=== PATIENT | male | born 1965 | race Caucasian/White ===

== ENCOUNTER 2016-12-30 18:29 | Inpatient (IN) | payer OTHER ==
[~2016-12-30] VITALS: Ht 162.6 cm; Wt 72.6 kg
[~2016-12-30 18:29] MED LIST: APAP/HYDROCODON1 T13 PO; COL100 PO; DEPAKOTE500 MG PO; FER300 PO; IPRATROPIUM BROM3 M2 HHN; LEVOTHYROXIN0.025 M2 PO; LORAZEPAM0.5 MG PO; MAGL PO; MELOXICAM7.5 MG/5 M PO; MOR2I IV; NEXIUM40 MG PO; SEROQUEL200 MG PO; SIMVASTATIN40 M1 PO; TYL325 PO; VITC PO; ZOFI IV
[2016-12-30 22:02] LABS: BASOPHIL % 0.2 % (0-2)
[2016-12-30 22:03] LABS: PLATELET COUNT 483 x10^3mcL (130-400); RED CELL DISTRIBUTION WIDTH 20.6 % (11.5-14.5)
[2016-12-30 22:10] LABS: CALCIUM 8.9 mg/dL (8.5-10.1); CARBON DIOXIDE 27.7 mmol/L (21-32); CHLORIDE SERUM 103 mmol/L (98-107); CREATININE SERUM 0.4 mg/dL (0.7-1.3); GFR1 > 60 mL/min; GLUCOSE SERUM 86 mg/dL (74-106); POTASSIUM SERUM 4.1 mmol/L (3.5-5.1); SODIUM SERUM 140 mmol/L (136-145)
[2016-12-30 22:14] LABS: ALKALINE PHOSPHATASE 146 U/L (46-116); ALT/SGPT 15 U/L (16-63); AST/SGOT 17 U/L (15-37); BILIRUBIN TOTAL 0.27 mg/dL (0.20-1.00); TOTAL PROTEIN, SERUM 6.8 g/dL (6.4-8.2)
[2016-12-30 22:15] LABS: ALBUMIN 2.1 g/dL (3.4-5.0)
[2016-12-30 22:25] LABS: rbc morphology (normal/abnorm) ABNORMAL (NORMAL)
[2016-12-30 22:54] LABS: microscopic required? NO
[2016-12-30 23:14] LABS: UA SPECIFIC GRAVITY 1.015 (1.005-1.035); urine erythrocyte NEGATIVE (NEGATIVE)
[2016-12-31] VITALS (7 sets, daily range): BP systolic 98–107; BP diastolic 61–71
[2016-12-31] MEDS ORDERED: LEVOTHYROXINE0.05 M2 PO (00:08)
[2016-12-31] MEDS ORDERED: AMIODARONE HCL200 MG PO (00:09)
[2016-12-31] MEDS ORDERED: COR6 PO (00:10)
[2016-12-31] MEDS ORDERED: SIMVASTATIN10 M1 PO (00:10)
[2016-12-31] MEDS ORDERED: SEROQUEL100 MG PO (00:11)
[2016-12-31 01:22] LABS: PHOSPHOROUS 3.9 mg/dL (2.5-4.9)
[2016-12-31 01:25] LABS: CHOLESTEROL/HDL RATIO 2.5
[2016-12-31 01:30] LABS: T3 TOTAL 0.86 ng/mL
[2016-12-31 01:32] LABS: FREE T4 1.55 ng/dL (0.76-1.46); FREE THYROXINE INDEX 3.4 ug/dL (1.4-4.5); T4(THYROXINE) 9.6 ug/dL (4.7-13.3)
[2016-12-31 05:41] LABS: BASOPHIL % 0.3 % (0-2)
[2016-12-31 05:59] LABS: CALCIUM 8.5 mg/dL (8.5-10.1); CARBON DIOXIDE 27.7 mmol/L (21-32); CHLORIDE SERUM 106 mmol/L (98-107); CREATININE SERUM 0.5 mg/dL (0.7-1.3); GFR1 > 60 mL/min; GLUCOSE SERUM 67 mg/dL (74-106); POTASSIUM SERUM 4.5 mmol/L (3.5-5.1); SODIUM SERUM 141 mmol/L (136-145)
[2016-12-31 06:49] LABS: PLATELET COUNT 449 x10^3mcL (130-400); RED CELL DISTRIBUTION WIDTH 20.1 % (11.5-14.5); rbc morphology (normal/abnorm) ABNORMAL (NORMAL)
[2017-01-01 06:23] LABS: BASOPHIL % 0.4 % (0-2)
[2017-01-01 06:27] VITALS: BP 101/62
[2017-01-01 06:40] LABS: CALCIUM 8.4 mg/dL (8.5-10.1); CARBON DIOXIDE 26.9 mmol/L (21-32); CHLORIDE SERUM 108 mmol/L (98-107); CREATININE SERUM 0.4 mg/dL (0.7-1.3); GFR1 > 60 mL/min; GLUCOSE SERUM 77 mg/dL (74-106); MAGNESIUM 1.9 mg/dL (1.8-2.4); PHOSPHOROUS 3.6 mg/dL (2.5-4.9); POTASSIUM SERUM 3.8 mmol/L (3.5-5.1); SODIUM SERUM 141 mmol/L (136-145)
[2017-01-01 06:43] LABS: PLATELET COUNT 422 x10^3mcL (130-400); RED CELL DISTRIBUTION WIDTH 20.1 % (11.5-14.5)
[2017-01-01 08:54] VITALS: BP 107/66
[2017-01-01 15:04] VITALS: BP 100/68
[2017-01-01 17:10] VITALS: BP 95/62
[2017-01-01 21:25] VITALS: BP 96/51
[2017-01-02 05:23] VITALS: BP 94/55
[2017-01-02 06:19] LABS: BASOPHIL % 0.2 % (0-2); PLATELET COUNT 371 x10^3mcL (130-400)
[2017-01-02 06:27] LABS: CALCIUM 8.2 mg/dL (8.5-10.1); CARBON DIOXIDE 27.8 mmol/L (21-32); CHLORIDE SERUM 108 mmol/L (98-107); CREATININE SERUM 0.6 mg/dL (0.7-1.3); GFR1 > 60 mL/min; GLUCOSE SERUM 72 mg/dL (74-106); MAGNESIUM 1.9 mg/dL (1.8-2.4); PHOSPHOROUS 3.9 mg/dL (2.5-4.9); POTASSIUM SERUM 4.4 mmol/L (3.5-5.1); SODIUM SERUM 142 mmol/L (136-145)
[2017-01-02 06:43] LABS: RED CELL DISTRIBUTION WIDTH 20.5 % (11.5-14.5)
[2017-01-02 10:07] VITALS: Ht 162.6 cm; Wt 72.6 kg
[2017-01-02 11:29] VITALS: BP 88/60
[2017-01-02 18:00] VITALS: BP 106/71
[2017-01-02 21:06] VITALS: BP 110/65
[2017-01-03 06:07] VITALS: BP 96/55
[2017-01-03 06:10] LABS: BASOPHIL % 0.3 % (0-2); PLATELET COUNT 380 x10^3mcL (130-400)
[2017-01-03 06:35] LABS: CALCIUM 8.2 mg/dL (8.5-10.1); CARBON DIOXIDE 26.8 mmol/L (21-32); CHLORIDE SERUM 110 mmol/L (98-107); CREATININE SERUM 0.4 mg/dL (0.7-1.3); GFR1 > 60 mL/min; GLUCOSE SERUM 80 mg/dL (74-106); POTASSIUM SERUM 3.6 mmol/L (3.5-5.1); SODIUM SERUM 142 mmol/L (136-145)
[2017-01-03 06:38] LABS: RED CELL DISTRIBUTION WIDTH 20.3 % (11.5-14.5)
[2017-01-03 08:16] LABS: rbc morphology (normal/abnorm) ABNORMAL (NORMAL)
[2017-01-03 08:35] VITALS: BP 96/55
[2017-01-03 09:00] VITALS: BP 97/65
[2017-01-03 13:34] VITALS: BP 102/64
[2017-01-03 18:26] VITALS: BP 97/57
[2017-01-03 20:30] VITALS: BP 107/57
[2017-01-04 06:30] VITALS: BP 100/46
[2017-01-04 09:26] VITALS: BP 92/58
[2017-01-04 13:15] VITALS: BP 119/45; BP 91/48
[2017-01-04 16:54] VITALS: BP 98/54
[2017-01-04 20:39] VITALS: BP 103/63
[2017-01-05 05:12] VITALS: BP 94/46
[2017-01-05 06:16] LABS: BASOPHIL % 0.3 % (0-2)
[2017-01-05 06:47] LABS: PLATELET COUNT 411 x10^3mcL (130-400); RED CELL DISTRIBUTION WIDTH 20.2 % (11.5-14.5)
[2017-01-05 06:48] LABS: rbc morphology (normal/abnorm) ABNORMAL (NORMAL)
[2017-01-05 07:07] LABS: CALCIUM 8.3 mg/dL (8.5-10.1); CHLORIDE SERUM 108 mmol/L (98-107); CREATININE SERUM 0.5 mg/dL (0.7-1.3); GFR1 > 60 mL/min; GLUCOSE SERUM 80 mg/dL (74-106); PHOSPHOROUS 4.2 mg/dL (2.5-4.9); SODIUM SERUM 144 mmol/L (136-145)
[2017-01-05 09:12] VITALS: BP 104/60
[2017-01-05 16:59] VITALS: BP 96/62
[2017-01-05 20:52] VITALS: BP 96/55
[2017-01-06 00:42] VITALS: BP 99/66
[2017-01-06 05:39] VITALS: BP 125/75
[2017-01-06 09:18] VITALS: BP 96/56
[2017-01-06 17:24] VITALS: BP 98/59
[2017-01-06 21:04] VITALS: BP 103/60
[2017-01-07 05:40] VITALS: BP 110/53
[2017-01-07 07:18] LABS: BASOPHIL % 0.4 % (0-2)
[2017-01-07 07:37] LABS: CALCIUM 8.3 mg/dL (8.5-10.1); CARBON DIOXIDE 28.4 mmol/L (21-32); CHLORIDE SERUM 107 mmol/L (98-107); CREATININE SERUM 0.5 mg/dL (0.7-1.3); GFR1 > 60 mL/min; GLUCOSE SERUM 84 mg/dL (74-106); POTASSIUM SERUM 3.9 mmol/L (3.5-5.1); SODIUM SERUM 142 mmol/L (136-145)
[2017-01-07 08:35] LABS: PLATELET COUNT 421 x10^3mcL (130-400); RED CELL DISTRIBUTION WIDTH 20.2 % (11.5-14.5)
[2017-01-07 09:06] VITALS: BP 95/63
[2017-01-07 10:00] VITALS: BP 95/63
[2017-01-07 14:46] VITALS: BP 103/62
[2017-01-07 19:08] VITALS: BP 94/59
[2017-01-07 22:01] VITALS: BP 115/75
[2017-01-08 06:18] VITALS: BP 95/58
[2017-01-08 09:44] VITALS: BP 90/47
[2017-01-08] MEDS ORDERED: LEVAQUIN750 MG PO (15:31)
[2017-01-08] MEDS ORDERED: CLEOCIN HCL300 MG PO (15:32)
[2017-01-08] MEDS ORDERED: LEVAQUIN750 MG IV (15:42)
[2017-01-08] MEDS ORDERED: CLEOCIN HCL300 MG IV (15:42)
[2017-01-08] MEDS ORDERED: LAC PO (15:43)
[2017-01-08 16:05] VITALS: BP 90/47
== END 2017-01-08 17:36 | DRG 853 ==
LOC: ED 18:29 → DU 23:32 → MU 23:32 → DU 12-31 00:50 → MU 01-02 09:57
PROVIDERS: Emergency Medicine; Family Medicine; Surgery; ADMIT Family Medicine
PROC: 0JB90ZZ Excision of Buttock Subcutaneous Tissue and Fascia, Open Approach (ICD-10-PCS; 2017-01-01)
PROC: 0JB70ZZ Excision of Back Subcutaneous Tissue and Fascia, Open Approach (ICD-10-PCS; 2017-01-01)
PROC: 0JB10ZZ Excision of Face Subcutaneous Tissue and Fascia, Open Approach (ICD-10-PCS; principal; 2017-01-01 12:00)
DX: A41.9 Sepsis, unspecified organism (principal); G93.41 Metabolic encephalopathy; E43 Unspecified severe protein-calorie malnutrition; N17.0 Acute kidney failure with tubular necrosis; L89.154 Pressure ulcer of sacral region, stage 4; L89.523 Pressure ulcer of left ankle, stage 3; L89.893 Pressure ulcer of other site, stage 3; L89.213 Pressure ulcer of right hip, stage 3; L03.211 Cellulitis of face; L03.115 Cellulitis of right lower limb; I42.9 Cardiomyopathy, unspecified; G40.802 Other epilepsy, not intractable, without status epilepticus; R62.50 Unspecified lack of expected normal physiological development in childhood; L84 Corns and callosities; I48.0 Paroxysmal atrial fibrillation; D63.8 Anemia in other chronic diseases classified elsewhere; E03.9 Hypothyroidism, unspecified; I10 Essential (primary) hypertension; L89.610 Pressure ulcer of right heel, unstageable; L89.890 Pressure ulcer of other site, unstageable; L89.220 Pressure ulcer of left hip, unstageable; Z68.27 Body mass index [BMI] 27.0-27.9, adult
CPT/HCPCS: 82962; 83880; 84439; 90715; C9113; J0696; J1644; J1956; J2060; J2250; J2704; J3010; J3490; J7030; J7120; J7620; Q0092; Q9967